=== PATIENT | female | born 1945 | race Caucasian/White ===

== ENCOUNTER 2016-12-18 09:00 | Inpatient (IN) | payer MEDICARE, BC ==
--- NOTE | ~2016-12-18 | OP ---
Record Of Operation [facility] [address] [place]. [address] NAME: CLARIBEL GARRETT : 43 STATUS : ADM IN PAT#: [id number] AGE: 71 ADM/REG DATE : 12/18/16 MR#: [id number] REPORT SERV DATE: 12/27/16 DICTATED BY: GIRISH LEIVA DATE: 12/27/16 REPORT STATUS : Draft TRANSCRIBED BY: MODL DATE: 12/27/16 DATE OF PROCEDURE: 12/24/2016 PREOPERATIVE DIAGNOSES: 1. Coronary artery disease with angina and rww-OK-fcoykxpkb myocardial infarction. 2. Congestive heart failure, systolic, acute on chronic. Ejection fraction 30%. 3. LV apical aneurysm. 4. Previous myocardial infarction. 5. Hypertension. 6. Degenerative joint disease. 7. Obesity. 8. Hyperlipidemia. POSTOPERATIVE DIAGNOSES: 1. Coronary artery disease with angina and pev-HZ-sxqvdmpql myocardial infarction. 2. Congestive heart failure, systolic, acute on chronic. Ejection fraction 30%. 3. LV apical aneurysm. 4. Previous myocardial infarction. 5. Hypertension. 6. Degenerative joint disease. 7. Obesity. 8. Hyperlipidemia. PROCEDURES PERFORMED: 1. Urgent coronary artery bypass grafting x6; left internal mammary artery placed to left anterior descending; reverse saphenous vein graft placed to the diagonal; reverse saphenous vein graft sequenced to the first obtuse marginal, second obtuse marginal, and third obtuse marginal; reverse saphenous vein graft placed to the posterior descending artery. 2. Left ventricular aneurysm repair using Lyndon method. 3. Endoscopic vein harvest, saphenous vein from right leg. 4. Transesophageal echocardiography. SURGEON: Girish Leiva M.D. PARAKEET RAISER: Cliff Joseph. ANESTHESIA: General with Dr. Vitale. CLEARANCE REPRESENTATIVE: Dr. Jarret Montoya and Dr. Efrain Slaughter. INDICATIONS: This is a 71-year-old obese female with a history of myocardial infarction in 1994. She presented to [facility] with chest pain and shortness of breath. She ruled in for ena-ES-elmilnzky myocardial infarction. She stabilized up there and transferred to [facility] for possible cardiac catheterization and disposition. She underwent cardiac catheterization here, which demonstrated significant three-vessel coronary artery Record Of Operation [facility] [address] [place]. [address] NAME: CLARIBEL GARRETT : 43 STATUS : ADM IN PAT#: [id number] AGE: 71 ADM/REG DATE : 12/18/16 MR#: [id number] REPORT SERV DATE: 12/27/16 DICTATED BY: GIRISH LEIVA DATE: 12/27/16 REPORT STATUS : Draft TRANSCRIBED BY: JENNIFER DATE: 12/27/16 disease with reduced ventricular function and an ejection fraction of 30%. We were asked to see the patient for possible urgent revascularization. We discussed this operation with the patient and her family and after a lengthy discussion of the operation, its indications, and risks, they wished to proceed. STS predicted risk of mortality for coronary artery bypass grafting was 3.4% morbidity, mortality was 21%, and this was shared with the family. FINDINGS AT OPERATION: 1. Cross-clamp time 97 minutes, total pump time 113 minutes. 2. The LAD was 1.5 mm and heavily diseased vessel. A 2-mm GONZALEZ was anastomosed to it with fair runoff. 3. The diagonal vessel was 1.5 mm and moderately diseased. A 3-mm RSVG was anastomosed to it with good runoff. 4. The first obtuse marginal was 1.5 mm and moderately diseased. A 4-mm RSVG was anastomosed to it in a xtmv-go-cewc fashion with fair runoff. 5. The second obtuse marginal was 1.5 mm and moderately diseased. The same 4-mm RSVG was anastomosed to this vessel in a aama-hd-zyvm fashion with fair runoff. 6. The third obtuse marginal was 1.5 mm and moderately diseased. The end of the same 4-mm RSVG was anastomosed to it with fair runoff. 7. The posterior descending artery was 1.5 mm and moderately diseased. A 4-mm RSVG was anastomosed to it with good runoff. 8. The vein quality was good and all grafts had good Doppler signal at the end of the case. 9. The LV apical aneurysm was x2 on cardiac catheterization. In the operating room with aortic root vent in place, this was a thinned out area of the apex of the left ventricle and based medially along the septum. The muscular tissue was very thinned and actually puckered with venting of the aortic root. We performed a Lyndon repair using a pursestring suture at the peripheral border zone and oversewing this with the aneurysm sac tissue. 10.DAVID at the end of the operation demonstrated improved ventricular function and very minimal mitral insufficiency. PATHOLOGIC SPECIMENS: None. DESCRIPTION OF PROCEDURE: The patient was brought to the operating suite where general anesthesia was induced. Airway was secured with an endotracheal tube. Lines were secured by Anesthesia. Hess catheter was placed. The patient's chest, abdomen, groin, and legs prepped with Hibiclens and ChloraPrep and draped with Ioban sterile sheets. DAVID probe was placed by Anesthesia and examination carried out in my attendance. Saphenous vein was harvested from the right leg using endoscopic technique. Briefly, the vein was cut directly down upon through a 2-cm incision placed at the medial aspect of the right knee. Then, using VasoView trocars, the vessel was dissected from the surrounding subcutaneous tissue and fat. The side branches were identified, ligated, and divided with cautery. Once adequate length of vein had been dissected, a counterincision was made up in the groin and in the lower leg where the vein was ligated, divided, and brought through the knee incision. The vein quality was good. The leg was made hemostatic and closed in layers with absorbable suture and skin closed in subcuticular fashion. Record Of Operation [facility] [address] [facility] [place]. [address] NAME: CLARIBEL GARRETT : 43 STATUS : ADM IN [facility]#: [id number] AGE: 71 ADM/REG DATE : 12/18/16 MR#: [id number] REPORT SERV DATE: 12/27/16 DICTATED BY: GIRISH LEIVA DATE: 12/27/16 REPORT STATUS : Draft TRANSCRIBED BY: JENNIFER DATE: 12/27/16 Then, a midline sternal incision was made and the sternum opened with a saw. The left hemithorax was elevated and the endothoracic fascia was incised. The side branches of the TRENT were clipped and divided. Once the TRENT was completely dissected, the patient was anticoagulated with heparin. A chest tube was placed in the left pleural cavity. The TRENT was clipped and divided distally. There was good flow through the TRENT and its pedicle was infiltrated with papaverine. Then, the Rogelio retractor was placed in the pericardium over from the innominate vein. The diaphragm was T'd and tacked to the side of the chest wall. Cannulation pursestring sutures were placed and cannulation was carried out in routine manner. A retrograde cardioplegia cannula was placed in the coronary sinus. When all was in readiness, the patient was placed on cardiopulmonary bypass. The distal targets were marked out on the heart as described in the findings. There were multiple targets seen on cath. There were small. Then, a heart support was placed. The aorta was crossclamped and an initial dose of cold blood cardioplegia solution was given in a combination of antegrade and retrograde fashion, then in retrograde manner following proximal anastomoses. Following the first dose of cardioplegia, we returned the heart toward the second obtuse marginal graft. Arteriotomy was made. The vein graft was trimmed proximally and planned for sequential grafting. Then, a lrqf-qn-ztcj saphenous coronary anastomosis was constructed with 7-0 Prolene. The third obtuse marginal vessel was opened and the end of the vein graft trimmed and anastomosed to it with a running suture of 7-0 Prolene. Finally, the first obtuse marginal vessel was opened and the vein graft lay adjacent to this and then a small venotomy made. Then, saphenous coronary anastomosis was constructed in a side-to- side fashion with running suture of 7-0 Prolene. This sequential graft was then measured to the left side of the ascending aorta, where it was divided and anastomosed to 4.5 mm punch aortotomy with 6-0 Prolene. Another dose of cardioplegia was given and the heart was positioned for the PDA graft. Arteriotomy was made. The vein graft was trimmed and anastomosed to it with 7-0 Prolene. The vein graft was measured to the left side of the ascending aorta, where it was divided. We then positioned the heart for the diagonal graft. Arteriotomy was made. The vein graft was trimmed and anastomosed to it with 7-0 Prolene. This vein graft was likewise measured to the left side of the ascending aorta, where it was divided. Next, the proximal ends of the two vein grafts were anastomosed to 4.5 mm punch aortotomy with 6-0 Prolene. Another dose of cardioplegia was given and the heart was positioned for the LAD graft. During this positioning, we did note the thinness of the apex and puckering and reviewed the heart catheterization. I felt this was most likely consistent with an aneurysm and plans were made for repair. Arteriotomy was made in the mid LAD. It was heavily diseased and small target. The TRENT was brought out of the left chest through a notch in the pericardium over the pulmonary artery. The TRENT was opened and anastomosed to the LAD with a running suture of 8-0 Prolene. The endothoracic fascia was tacked to the epicardium. , another dose of cardioplegia was given and we turned our attention toward the apex of the heart, where the LV aneurysm existed. A left ventricular vent was placed through the right superior pulmonary vein and advanced into Record Of Operation [address] [place]. [address] NAME: CLARIBEL GARRETT : 43 STATUS : ADM IN PAT#: [id number] AGE: 71 ADM/REG DATE : 12/18/16 MR#: [id number] REPORT SERV DATE: 12/27/16 DICTATED BY: GIRISH LEIVA DATE: 12/27/16 REPORT STATUS : Draft TRANSCRIBED BY: MODL DATE: 12/27/16 the left ventricle and secured. An incision parallel to the LAD and lateral to it and in the thinnest part of the aneurysm was made. This was carried into the endocardial surface. Retractor was placed and we inspected the endocardial surface and found what was thought to be the peripheral border zone. A 2-0 Prolene pursestring suture was then placed in the neck of this aneurysm at the peripheral border zone. The suture was tied and the gap within this pursestring suture was very small. We then to elected oversew this tissue directly over the closure for the aneurysm. This was performed in a two-layer running fashion with 3-0 Prolene using horizontal mattress sutures. The patient was then placed in Trendelenburg and a final dose of warm blood cardioplegia was given in a retrograde fashion. Ventricular and atrial pacing wires were placed. Following the last dose of cardioplegia and deairing of the aorta, the aortic cross-clamp was removed. The distal and proximal anastomoses and suture lines were inspected and made hemostatic. Doppler demonstrated good flow through the grafts. The heart was then begun on inotropes and pacing was begun in an AV sequential fashion at a rate of 80. Ventilation was begun and when the heart demonstrated good contractility, it was allowed to fill and eject. When deairing was completed, the LV vent was removed and these pursestring sutures were tied. The ascending aortic vent was removed and these pursestring sutures tied and reinforced. The patient was weaned from cardiopulmonary bypass with inotropic support. The venous cannula was removed and these pursestring sutures tied. DAVID examination demonstrated improved ventricular function. The aneurysm was no longer seen at the LV apex on echocardiography. There was very minimal mitral insufficiency. Protamine was administered by Anesthesia and following a period of hemodynamic stability, the aortic cannula was removed and these pursestring sutures tied and reinforced. The patient continued to do well and chest irrigated copiously with saline. Meticulous hemostasis was obtained. Hemasorb was placed along the cut edge of the sternum. Once hemostasis was assured, the pericardium was draped over the anterior surface of the heart and tacked into position. Doppler demonstrated good flow through the grafts following protamine administration. Then, chest tubes were placed and the sternum reapproximated with eight sternal wires. The clavipectoral fascia and linea alba were closed with #1 Stratafix. The subcutaneous tissues were closed with Stratafix and the skin was closed in subcuticular fashion. The patient tolerated the procedure well. There were no complications. Sponge and needle counts were correct. DISPOSITION: The patient was left intubated, sedated, and transported to the intensive care unit in stable condition. [facility] Record Of [address] [address] NAME: CLARIBEL GARRETT : 43 STATUS : ADM IN [facility]#: [id number] AGE: 71 ADM/REG DATE : 12/18/16 MR#: [id number] REPORT SERV DATE: 12/27/16 DICTATED BY: GIRISH LEIVA DATE: 12/27/16 REPORT STATUS : Draft TRANSCRIBED BY: MODL DATE: 12/27/16 Girish Leiva M.D. / [id number] CC: Felicia Prado M.D.
--- NOTE | ~2016-12-18 | CN ---
Consultation Report [facility] [address] [place]. [address] NAME: CLARIBEL GARRETT : 43 STATUS : ADM IN PAT#: [id number] AGE: 71 ADM/REG DATE : 12/18/16 MR#: [id number] REPORT SERV DATE: 12/19/16 DICTATED BY: KENYON ALVAREZ DATE: 12/19/16 REPORT STATUS : Draft TRANSCRIBED BY: MODL DATE: 12/19/16 CONSULTATION DATE OF CONSULTATION: 12/18/2016 REASON FOR CONSULTATION: Coronary artery disease, recent kse-CK-gqwiikauv myocardial infarction, consideration for coronary artery bypass grafting. CHIEF COMPLAINT: "I had terrible shortness of breath and chest pain and went to the ER". HISTORY OF PRESENT ILLNESS: This is a 71-year-old female, fairly active, who has prior cardiac history of myocardial infarction in 1994. She was treated conservatively at that time. She tells me that, she has been doing well until approximately Friday when she had sudden onset of shortness of breath and wheezing and crackles in her lungs. This was associated with chest discomfort, which was burning in nature. This lasted over an hour. She went to the emergency department at [facility] and was found to have findings on chest x- ray consistent with pulmonary edema as well as elevated troponin I and abnormal EKG. She was hospitalized, stabilized, and yesterday was transferred here and underwent coronary arteriogram, which demonstrated significant flow-limiting three-vessel coronary artery disease. Her left ventricular function was diminished with ejection fraction of 30%. We were asked to see for possible coronary artery bypass grafting. This was discussed with the patient and her son this morning. PRIOR MEDICAL HISTORY: 1. Hypertension. 2. Hyperlipidemia. 3. Asthma. 4. Arthritis. 5. Nephrolithiasis. 6. Urinary incontinence. PRIOR SURGICAL HISTORY: Significant for section and previous tubal ligation. ALLERGIES: SHE TELLS ME, SHE CANNOT TAKE NITROGLYCERIN, BUT DOES NOT KNOW WHAT SORT OF INTOLERANCE SHE HAS. SHE ALSO SEEMS INTOLERANT OF PENICILLIN AND SULFA, BUT HAS NO RECOLLECTION OF WHAT SORT OF ALLERGY SHE HAS. MEDICATIONS: At [facility] included albuterol inhaler, aspirin, atorvastatin, furosemide, lisinopril, metoprolol, nitroglycerin, pantoprazole, potassium, and ondansetron. FAMILY HISTORY: Significant for father age sixty one of sudden cardiac , mother had valvular disease and at age forty four three days after the patient was born. Consultation Report [address] [place]. [address] NAME: CLARIBEL GARRETT : 43 STATUS : ADM IN [facility]#: [id number] AGE: 71 ADM/REG DATE : 12/18/16 MR#: [id number] REPORT SERV DATE: 12/19/16 DICTATED BY: KENYON ALVAREZ DATE: 12/19/16 REPORT STATUS : Draft TRANSCRIBED BY: JENNIFER DATE: 12/19/16 SOCIAL HISTORY: She is a nonsmoker, nondrinker. She is . She has four adult children. 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 REVIEW OF SYSTEMS: GENERAL: Negative for any recent weight change, fevers, chills, night sweats, or malaise. ENT: Denies cataracts, glaucoma, any ear problems. She has upper and lower dentures. RESPIRATORY: Positive for asthma, recent dyspnea, and shortness of breath, wheezing and crackles in the lungs. CV: Positive for palpitations. Negative for heart murmur. Positive for prior heart attack and recent chest pain. GI: Negative. : Positive for kidney stones. HEME/ONC: Negative. ENDOCRINE: Negative. NEUROLOGIC: Negative for any symptoms of amaurosis fugax, TIA, or stroke. SKIN, HAIR, NAILS: Denies lesions, masses, rashes, or easy bruising. PHYSICAL EXAMINATION: GENERAL: She is a pleasant elderly white female, in no acute distress. Her weight 61.23 kg, height 157.48 cm. VITAL SIGNS: Blood pressure is 133/74, temperature 99.1, pulse 72, respirations 21, saturation 99% on 3 L nasal cannula. HEENT: Normocephalic, atraumatic. Her left pupil is slightly irregular, but reactive. Sclerae clear, conjunctivae pink. Oral and buccal mucosa pink and moist, and she is edentulous. NECK: Supple. No restricted range of motion. No carotid bruits. No jugular venous distention. CHEST: She has bibasilar crackles and coarse breath sounds. No use of accessory muscles. Mild thoracic kyphosis. No scoliosis. No other deformity. No chest wall tenderness. CV: Regular rate and rhythm without murmur or rub. She has palpable symmetric central peripheral pulses, no clubbing, cyanosis, or edema. No lower extremity varicosities. ABDOMEN: Soft, obese, nontender with normoactive bowel sounds. No hepatosplenomegaly. /RECTAL: Declined. MUSCULOSKELETAL: Mild kyphosis. No scoliosis. No asymmetry. NEUROLOGIC: She is alert and oriented to day, date, place, and situation. Has bilateral symmetric and strong upper and lower extremity strength. SKIN, HAIR, AND NAILS: No lesions, masses, or rashes. DATA: Her coronary arteriogram shows flow-limiting disease in the left anterior descending, diagonals, obtuse marginal, circumflex, and right coronary arteries. Her left ventricular function is severely diminished with anterior apical and posterior apical and apical akinesis. Her EKG shows sinus rhythm with left bundle branch block. Her troponin I was 1.44, BNP was [address] [facility]. Her CBC shows WBC is 8.9, hemoglobin 14.2, hematocrit 41.6, and platelets 205,000. Electrolytes are unremarkable, creatinine is 0.75. Her cholesterol is elevated at 216, HDL was 65, LDL 130, and triglycerides 106. Consultation Report [address] [place]. [address] NAME: CLARIBEL GARRETT : 43 STATUS : ADM IN [facility]#: [id number] AGE: 71 ADM/REG DATE : 12/18/16 MR#: [id number] REPORT SERV DATE: 12/19/16 DICTATED BY: KENYON ALVAREZ DATE: 12/19/16 REPORT STATUS : Draft TRANSCRIBED BY: JENNIFER DATE: 12/19/16 IMPRESSION: Three-vessel flow-limiting coronary artery disease in a 71-year-old female with recent pdf-MZ-ivayhymse myocardial infarction and pulmonary edema with thnnr-ud-oqopxpv systolic heart failure. PLAN: Discussed with the patient possible coronary artery bypass grafting, indications, benefits, and serious risks which include but are not limited to, things such as bleeding, need for blood or blood product transfusion and their attendant risks, infection including deep sternal infection, mediastinitis, damage to the kidneys, liver, lungs, heart attack, stroke, abnormal heart rhythm, and even . The patient is agreeable to proceed. We will discuss with Dr. Leiva and cardiology timing of surgery. Carotid ultrasound is currently pending. We will obtain chest x-ray today. Using Society of Thor[employer]geons database for risk prediction, risk of mortality was 3.378%, morbidity or mortality 21.037%. This is discussed with the patient and her family. We appreciate the opportunity to participate in her care and will make further disposition, probably surgical revascularization at this hospitalization. JOHN/JENNIFER Kenyon Alvarez, N.P. / [id number] CC: Felicia Prado MD
--- NOTE | ~2016-12-18 | DS ---
Discharge Summary [facility] [address] [place]. [address] NAME: CLARIBEL GARRETT : 43 STATUS : DIS IN PAT#: [id number] AGE: 71 ADM/REG DATE : 12/18/16 MR#: [id number] REPORT SERV DATE: 01/13/17 DICTATED BY: GIRISH LEIVA DATE: 01/12/17 REPORT STATUS : Draft TRANSCRIBED BY: JENNIFER DATE: 01/12/17 Data Collection from hospitalization DISCHARGE DIAGNOSES: 1. Coronary artery disease, status post coronary artery bypass grafting. 2. Chronic systolic congestive heart failure. 3. Hypertension. 4. Hyperlipidemia. 5. Recent skw-[place]-kktndfyjx myocardial infarction. 6. Asthma. 7. Arthritis. 8. History of nephrolithiasis. 9. Urinary incontinence. CONSULTATION: Dr. Jarret Montoya. PROCEDURES PERFORMED: 1. Cardiac catheterization, 12/18/2016. 2. Urgent coronary artery bypass grafting x6 with GONZALEZ to the LAD, reverse saphenous vein graft placed to the diagonal, reverse saphenous vein graft sequenced to the first obtuse marginal, second obtuse marginal, and third obtuse marginal, reverse saphenous vein graft placed to the posterior descending artery. 3. Left ventricular aneurysm repair using Lyndon method. 4. Endoscopic vein harvest of the saphenous vein from the right leg. 5. Transesophageal echocardiography, 12/24/2016. 6. Carotid blood flow study, 12/19/2016. DISCHARGE MEDICATIONS: Proventil one nebulized inhaler every six hours as instructed, aspirin 81 mg daily, Lipitor 40 mg at bedtime, Coreg 12.5 mg twice a day, Lasix 40 mg daily as needed, Laporte 5/325 one tablet every four hours as needed, Prinivil 5 mg daily, nitroglycerin 0.4 mg sublingually as needed, Zofran 4 mg every four hours as needed, Protonix 40 mg daily, Klor-Con 20 mEq daily as needed, Senokot two tablets daily as needed, Aldactone 25 mg daily, Jantoven 5 mg every evening. CONDITION AT DISCHARGE: Stable. DISPOSITION: The patient was discharged home on a low-sodium, low-cholesterol diet with activities as instructed. She would follow up with Kenyon Milian on 02/27/2017. She would follow up with Dr. Efrain Slaughter on 02/14/2017. She would [facility] [place] on 01/02/2017. HOSPITAL COURSE: This is a 71-year-old female who is fairly active and has a prior cardiac history of myocardial infarction in 1994. She was treated conservatively at that time. She tells me that she had been doing well until approximately Friday prior to this admission when she had the sudden onset of shortness of breath, wheezing, and crackles in her lungs. This was associated with chest discomfort which was burning in nature, this lasted over an hour. She went to the emergency department at [facility] and was found to have findings on chest x-ray consistent with pulmonary edema as well as elevated troponin I and abnormal EKG. Discharge Summary [address] [address] NAME: CLARIBEL GARRETT : 43 STATUS : DIS IN [facility]#: [id number] AGE: 71 ADM/REG DATE : 12/18/16 MR#: [id number] REPORT SERV DATE: 01/13/17 DICTATED BY: GIRISH LEIVA DATE: 01/12/17 REPORT STATUS : Draft TRANSCRIBED BY: JENNIFER DATE: 01/12/17 She was hospitalized and stabilized and on the day of this admission, was transferred here to undergo coronary arteriogram. She was admitted to the hospital at this time for further evaluation and treatment. Upon admission, she was taken to the cardiac laborer/grade check where she underwent the above- mentioned coronary arteriogram by Dr. Jarret Montoya. She tolerated this well. There were no complications. Her coronary arteriogram demonstrated significant flow-limiting three-vessel coronary artery disease. Her left ventricular function was diminished with ejection fraction of 30%. It was thought that the patient would need to undergo possible coronary artery bypass grafting. The patient was agreeable to proceed. A carotid blood flow study was requested. The following day, a carotid blood flow study was performed. Coreg was increased. She was in a sinus rhythm. On 12/20/2016, she did complain of having some diarrhea. She was in a sinus rhythm. Stool was going to be checked for O and P and C. difficile. Blood pressure was under good control. She was well diuresed. C difficile study was negative. study was negative. She remained in a sinus rhythm. Plans were being made to proceed with surgical intervention. On 12/24/2016, she was taken to the operating room where she underwent the above-mentioned procedure. She tolerated this well. There were no complications. On postop day #1, her lungs were clear. She had no edema. Her incisions looked okay. Beta-geovany was held. Oral fluids were increased. Blood pressure was under good control at this time. On 12/26/2016, she had no new complaints. Her weight had increased. She did have some edema in her lower extremities. White count was 16.6. Aldactone was continued. Her incisions looked okay. Chest x-ray revealed some left base atelectasis and effusion. Her family was concerned about her weakness and unsteady gait. We encouraged her to increase her activity. Eliquis was added to her regimen to prevent against clot. On 12/29/2016, she was comfortable. She was ambulatory. She was in a regular sinus rhythm. Eliquis was continued. The next day, the patient fell after slipping on some water on the floor in the bathroom. She was now using a rolling walker. She had no issues with balance or gait. She had made significant progress in her strength since the previous week. Discharge planning continued. There were no acute physical therapy needs at this time. Echocardiogram was performed. She continued to ambulate in the halls without problems. A LifeVest was going to be placed. Laxatives were given. She had no evidence of bleeding. She remained in a sinus rhythm. On 12/31/2016, she continued to feel well. White count was 9.9. Blood pressure was under good control. She seemed to be in good spirits. Discharge instructions were given. Due to her improved and stable condition, she was discharged home with the above-stated instructions. Information collected by: Andie Painting I submit the above information as my discharge summary. DAVONTE/JENNIFER Girish Leiva M.D. / [id number] Discharge Summary [address] [address] NAME: CLARIBEL GARRETT : 43 STATUS : DIS IN PAT#: [id number] AGE: 71 ADM/REG DATE : 12/18/16 MR#: [id number] REPORT SERV DATE: 01/13/17 DICTATED BY: GIRISH LEIVA DATE: 01/12/17 REPORT STATUS : Draft TRANSCRIBED BY: JENNIFER DATE: 01/12/17 CC: Felicia Prado MD
[2016-12-18 10:08] LABS: BASOPHILS 0.3 %; BASOPHILS ABSOLUTE 0.03 10/3/uL (0.0-0.16); EOSINOPHILS 1.1 %; EOSINOPHILS ABSOLUTE 0.11 10/3/uL (0.0-0.53); HEMATOCRIT 40.6 % (36.0-48.0); IMMATURE GRANULOCYTES 0.3 %; IMMATURE GRANULOCYTES ABSOLUTE 0.03 10/3/uL (0.0-0.11); LYMPHOCYTES 27.2 %; MEAN CORPUS HGB CONC 34.5 g/dL (32.0-36.0); MEAN CORPUSCULAR HEMOGLOB 31.7 pg (26.0-34.0); MEAN CORPUSCULAR VOLUME 91.9 fL (80-100); MEAN PLATELET VOLUME 11.4 fL (9.2-13.0); MONOCYTES 8.3 %; MONOCYTES ABSOLUTE 0.82 10/3/uL (0.21-1.20); NEUTROPHILS 62.8 %; NEUTROPHILS ABSOLUTE 6.22 10/3/uL (2.02-8.40); PLATELET COUNT 221 10/3/uL (150-400); RBC DISTRIBUTION WIDTH 13.7 % (12.0-16.0); RED CELL COUNT 4.42 10/6/uL (4.0-5.6); WHITE BLOOD CELLS 9.9 10/3/uL (4.5-10.5)
[2016-12-18 10:09] LABS: MANUAL DIFF NO %
[2016-12-18 10:23] LABS: BUN (BLOOD UREA NITROGEN) 20 MG/DL (6-23); CALCIUM, SERUM 8.7 MG/DL (8.5-10.4); CHLORIDE, SERUM 106 MMOL/L (96-112); CHOL/HDL RATIO(NOT ORDER) 3.3 (0-5); CHOLESTEROL 216 MG/DL (< 200); CO2 (CARBON DIOXIDE) 28 MMOL/L (24-34); CREATININE 0.95 MG/DL (0.55-1.02); GFR AFRICAN AMERICAN 69 ML/MIN (>=60); GFR NON AFRICAN AMERICAN 60 ML/MIN (>=60); GLUCOSE, SERUM 93 MG/DL (60-99); HDL CHOLESTEROL 65 MG/DL (> 49); LDL CHOLESTEROL 130 MG/DL (< 130); NON-HDL CHOLESTEROL 151 MG/DL (< 160); POTASSIUM, SERUM 3.9 MMOL/L (3.5-5.3); SODIUM, SERUM 143 MMOL/L (135-148); TRIGLYCERIDE 106 MG/DL (< 150)
[2016-12-18] MEDS ORDERED: [UNRECOGNIZED DRUG - REMARK] (11:11)
[2016-12-18] MEDS ORDERED: ALBUTEROL5 INH (17:28)
[2016-12-18] MEDS ORDERED: ASABAYER PO (17:28)
[2016-12-18] MEDS ORDERED: LIPITOR40 PO (17:29)
[2016-12-18] MEDS ORDERED: ALTA5 PO (17:30)
[2016-12-18] MEDS ORDERED: [UNRECOGNIZED DRUG - OTHER] PO (17:30)
[2016-12-18] MEDS ORDERED: LOP25 PO (17:31)
[2016-12-18] MEDS ORDERED: NTG150 SL (17:31)
[2016-12-18] MEDS ORDERED: PROTONIX PO (17:32)
[2016-12-18] MEDS ORDERED: KLOR-CON M2020 MEQ PO (17:35)
[2016-12-18] MEDS ORDERED: ZOFRAN4 PO (17:38)
[2016-12-18 21:07] LABS: ASCORBIC ACID (UR NOT ORDER) NEG (NEG); BILIRUBIN, URINE NEGATIVE (NEG); KETONE, URINE NEGATIVE (NEG); LEUKOCYTE ESTERASE(NOT OR SMALL (NEG); WBC (NOT ORDERED) (RFLEX) 4 (0-5)
[2016-12-19 04:43] LABS: BASOPHILS 0.2 %; BASOPHILS ABSOLUTE 0.02 10/3/uL (0.0-0.16); EOSINOPHILS 1.3 %; EOSINOPHILS ABSOLUTE 0.12 10/3/uL (0.0-0.53); HEMATOCRIT 41.6 % (36.0-48.0); HEMOGLOBIN 14.2 g/dL (12.0-16.0); IMMATURE GRANULOCYTES 0.1 %; IMMATURE GRANULOCYTES ABSOLUTE 0.01 10/3/uL (0.0-0.11); LYMPHOCYTES 19.7 %; LYMPHOCYTES ABSOLUTE 1.76 10/3/uL (0.67-4.30); MANUAL DIFF NO %; MEAN CORPUS HGB CONC 34.1 g/dL (32.0-36.0); MEAN CORPUSCULAR HEMOGLOB 31.9 pg (26.0-34.0); MEAN CORPUSCULAR VOLUME 93.5 fL (80-100); MEAN PLATELET VOLUME 10.9 fL (9.2-13.0); MONOCYTES 9.6 %; MONOCYTES ABSOLUTE 0.86 10/3/uL (0.21-1.20); NEUTROPHILS 69.1 %; NEUTROPHILS ABSOLUTE 6.15 10/3/uL (2.02-8.40); PLATELET COUNT 205 10/3/uL (150-400); RBC DISTRIBUTION WIDTH 13.5 % (12.0-16.0); RED CELL COUNT 4.45 10/6/uL (4.0-5.6); WHITE BLOOD CELLS 8.9 10/3/uL (4.5-10.5)
[2016-12-19 04:56] LABS: BUN (BLOOD UREA NITROGEN) 17 MG/DL (6-23); CALCIUM, SERUM 8.7 MG/DL (8.5-10.4); CHLORIDE, SERUM 108 MMOL/L (96-112); CO2 (CARBON DIOXIDE) 25 MMOL/L (24-34); CREATININE 0.75 MG/DL (0.55-1.02); GFR AFRICAN AMERICAN 92 ML/MIN (>=60); GFR NON AFRICAN AMERICAN 80 ML/MIN (>=60); GLUCOSE, SERUM 95 MG/DL (60-99); POTASSIUM, SERUM 4.3 MMOL/L (3.5-5.3); SODIUM, SERUM 141 MMOL/L (135-148)
[2016-12-20 13:49] LABS: BASOPHILS 0.2 %; BASOPHILS ABSOLUTE 0.02 10/3/uL (0.0-0.16); EOSINOPHILS 1.4 %; EOSINOPHILS ABSOLUTE 0.13 10/3/uL (0.0-0.53); HEMOGLOBIN 14.8 g/dL (12.0-16.0); IMMATURE GRANULOCYTES 0.1 %; IMMATURE GRANULOCYTES ABSOLUTE 0.01 10/3/uL (0.0-0.11); LYMPHOCYTES 19.6 %; LYMPHOCYTES ABSOLUTE 1.81 10/3/uL (0.67-4.30); MEAN CORPUS HGB CONC 34.4 g/dL (32.0-36.0); MEAN CORPUSCULAR HEMOGLOB 32.2 pg (26.0-34.0); MEAN CORPUSCULAR VOLUME 93.5 fL (80-100); MEAN PLATELET VOLUME 11.5 fL (9.2-13.0); MONOCYTES 9.5 %; MONOCYTES ABSOLUTE 0.88 10/3/uL (0.21-1.20); NEUTROPHILS 69.2 %; NEUTROPHILS ABSOLUTE 6.39 10/3/uL (2.02-8.40); PLATELET COUNT 201 10/3/uL (150-400); RBC DISTRIBUTION WIDTH 13.6 % (12.0-16.0); WHITE BLOOD CELLS 9.2 10/3/uL (4.5-10.5)
[2016-12-20 13:50] LABS: MANUAL DIFF NO %
[2016-12-20 14:04] LABS: CALCIUM, SERUM 9.6 MG/DL (8.5-10.4); CHLORIDE, SERUM 109 MMOL/L (96-112); CO2 (CARBON DIOXIDE) 26 MMOL/L (24-34); GFR AFRICAN AMERICAN 50 ML/MIN (>=60); GFR NON AFRICAN AMERICAN 43 ML/MIN (>=60); GLUCOSE, SERUM 83 MG/DL (60-99); SODIUM, SERUM 142 MMOL/L (135-148)
[2016-12-20 14:05] LABS: BUN (BLOOD UREA NITROGEN) 25 MG/DL (6-23); CREATININE 1.25 MG/DL (0.55-1.02)
[2016-12-21 13:07] LABS: BUN (BLOOD UREA NITROGEN) 32 MG/DL (6-23); CALCIUM, SERUM 9.1 MG/DL (8.5-10.4); CHLORIDE, SERUM 106 MMOL/L (96-112); CO2 (CARBON DIOXIDE) 27 MMOL/L (24-34); CREATININE 1.35 MG/DL (0.55-1.02); GFR AFRICAN AMERICAN 45 ML/MIN (>=60); GFR NON AFRICAN AMERICAN 39 ML/MIN (>=60); GLUCOSE, SERUM 96 MG/DL (60-99); POTASSIUM, SERUM 3.9 MMOL/L (3.5-5.3); SODIUM, SERUM 141 MMOL/L (135-148)
[2016-12-22 13:27] LABS: CALCIUM, SERUM 9.5 MG/DL (8.5-10.4); CHLORIDE, SERUM 107 MMOL/L (96-112); CO2 (CARBON DIOXIDE) 25 MMOL/L (24-34); CREATININE 1.05 MG/DL (0.55-1.02); GFR AFRICAN AMERICAN 61 ML/MIN (>=60); GFR NON AFRICAN AMERICAN 53 ML/MIN (>=60); GLUCOSE, SERUM 89 MG/DL (60-99); POTASSIUM, SERUM 4.1 MMOL/L (3.5-5.3); SODIUM, SERUM 140 MMOL/L (135-148)
[2016-12-22 13:28] LABS: BUN (BLOOD UREA NITROGEN) 28 MG/DL (6-23)
[2016-12-23 06:14] LABS: BASOPHILS 0.3 %; BASOPHILS ABSOLUTE 0.02 10/3/uL (0.0-0.16); EOSINOPHILS 3.7 %; EOSINOPHILS ABSOLUTE 0.24 10/3/uL (0.0-0.53); HEMATOCRIT 39.3 % (36.0-48.0); HEMOGLOBIN 13.4 g/dL (12.0-16.0); IMMATURE GRANULOCYTES 0.2 %; IMMATURE GRANULOCYTES ABSOLUTE 0.01 10/3/uL (0.0-0.11); LYMPHOCYTES 27.5 %; LYMPHOCYTES ABSOLUTE 1.78 10/3/uL (0.67-4.30); MEAN CORPUS HGB CONC 34.1 g/dL (32.0-36.0); MEAN CORPUSCULAR HEMOGLOB 31.4 pg (26.0-34.0); MEAN PLATELET VOLUME 11.2 fL (9.2-13.0); MONOCYTES 11.4 %; MONOCYTES ABSOLUTE 0.74 10/3/uL (0.21-1.20); NEUTROPHILS 56.9 %; NEUTROPHILS ABSOLUTE 3.68 10/3/uL (2.02-8.40); PLATELET COUNT 213 10/3/uL (150-400); RBC DISTRIBUTION WIDTH 13.4 % (12.0-16.0); RED CELL COUNT 4.27 10/6/uL (4.0-5.6); WHITE BLOOD CELLS 6.5 10/3/uL (4.5-10.5)
[2016-12-23 06:15] LABS: MANUAL DIFF NO %
[2016-12-23 06:36] LABS: A/G RATIO 0.7 (0.7-1.9); ALKALINE PHOSPHATASE 72 U/L (45-117); BUN (BLOOD UREA NITROGEN) 26 MG/DL (6-23); CHLORIDE, SERUM 109 MMOL/L (96-112); CO2 (CARBON DIOXIDE) 25 MMOL/L (24-34); CREATININE 0.84 MG/DL (0.55-1.02); GFR AFRICAN AMERICAN 80 ML/MIN (>=60); GFR NON AFRICAN AMERICAN 69 ML/MIN (>=60); GLOBULIN 4.2 G/DL (2.5-4.1); GLUCOSE, SERUM 95 MG/DL (60-99); POTASSIUM, SERUM 4.1 MMOL/L (3.5-5.3); SGOT(AST) 12 U/L (5-40); SGPT(ALT) 19 U/L (5-65); SODIUM, SERUM 143 MMOL/L (135-148); TOTAL BILIRUBIN 0.5 MG/DL (0-1.2); TOTAL PROTEIN 7.2 G/DL (6.0-8.5)
[2016-12-23 14:10] LABS: ASCORBIC ACID (UR NOT ORDER) 40 (NEG); BILIRUBIN, URINE NEGATIVE (NEG); KETONE, URINE NEGATIVE (NEG); LEUKOCYTE ESTERASE(NOT OR MOD (NEG); WBC (NOT ORDERED) (RFLEX) 13 (0-5)
[2016-12-24 04:56] LABS: BASOPHILS 0.4 %; BASOPHILS ABSOLUTE 0.03 10/3/uL (0.0-0.16); EOSINOPHILS 3.6 %; EOSINOPHILS ABSOLUTE 0.25 10/3/uL (0.0-0.53); HEMATOCRIT 39.8 % (36.0-48.0); HEMOGLOBIN 13.5 g/dL (12.0-16.0); IMMATURE GRANULOCYTES 0.1 %; IMMATURE GRANULOCYTES ABSOLUTE 0.01 10/3/uL (0.0-0.11); LYMPHOCYTES 28.5 %; LYMPHOCYTES ABSOLUTE 1.97 10/3/uL (0.67-4.30); MEAN CORPUS HGB CONC 33.9 g/dL (32.0-36.0); MEAN CORPUSCULAR HEMOGLOB 31.5 pg (26.0-34.0); MEAN PLATELET VOLUME 11.2 fL (9.2-13.0); MONOCYTES ABSOLUTE 0.83 10/3/uL (0.21-1.20); NEUTROPHILS 55.4 %; NEUTROPHILS ABSOLUTE 3.82 10/3/uL (2.02-8.40); PLATELET COUNT 212 10/3/uL (150-400); RBC DISTRIBUTION WIDTH 13.3 % (12.0-16.0); RED CELL COUNT 4.28 10/6/uL (4.0-5.6); WHITE BLOOD CELLS 6.9 10/3/uL (4.5-10.5)
[2016-12-24 04:57] LABS: MANUAL DIFF NO %
[2016-12-24 05:03] LABS: INTERNATIONAL NORMAL RATI 1.2 UNITS (-); PROTIME (NOT ORD) 15.5 SEC (12.0-14.5)
[2016-12-24 05:11] LABS: A/G RATIO 0.7 (0.7-1.9); ALKALINE PHOSPHATASE 73 U/L (45-117); BUN (BLOOD UREA NITROGEN) 26 MG/DL (6-23); CALCIUM, SERUM 9.1 MG/DL (8.5-10.4); CHLORIDE, SERUM 106 MMOL/L (96-112); CO2 (CARBON DIOXIDE) 26 MMOL/L (24-34); CREATININE 1.02 MG/DL (0.55-1.02); GFR AFRICAN AMERICAN 64 ML/MIN (>=60); GFR NON AFRICAN AMERICAN 55 ML/MIN (>=60); GLOBULIN 4.1 G/DL (2.5-4.1); GLUCOSE, SERUM 97 MG/DL (60-99); POTASSIUM, SERUM 4.3 MMOL/L (3.5-5.3); SGOT(AST) 12 U/L (5-40); SGPT(ALT) 19 U/L (5-65); SODIUM, SERUM 142 MMOL/L (135-148); TOTAL BILIRUBIN 0.5 MG/DL (0-1.2); TOTAL PROTEIN 7.1 G/DL (6.0-8.5)
[2016-12-24 17:54] LABS: BE (BASE EXCESS) -6.8 MEQ/L (0 +/- 2.5); CARBOXYHEMOGLOBIN 0.3 % (0-3); HCO3 (ACTUAL BICARBONATE) 17.3 MEQ/L (23-27); HEMOBLOGIN CONTENT 12.2 G/DL (12-16); INSTRUMENT SERIAL # 11843; METHEMOGLOBIN 0.6 % (0-3); MODE SIMV; O2 CONTENT 17.2 VOL% (18-24); OPERATOR ID 13624; PCO2 (CO2 TENSION) 31 MMHG (35-45); PO2 (O2 TENSION) 195 MMHG (79-93); SAMPLE Arterial; TIDAL VOLUME 600 ML; pH 7.37 (7.37-7.43)
[2016-12-24 18:11] LABS: HEMOGLOBIN 11.4 g/dL (12.0-16.0)
[2016-12-24 18:15] LABS: HEMATOCRIT 33.8 % (36.0-48.0); PLATELET COUNT 129 10/3/uL (150-400)
[2016-12-24 18:20] LABS: INTERNATIONAL NORMAL RATI 1.7 UNITS (-); PARTIAL THROMBO TIME 34.4 SEC (22.5-37.2); PROTIME (NOT ORD) 20.2 SEC (12.0-14.5)
[2016-12-24 18:24] LABS: BUN (BLOOD UREA NITROGEN) 23 MG/DL (6-23); CALCIUM, SERUM 8.7 MG/DL (8.5-10.4); CHLORIDE, SERUM 113 MMOL/L (96-112); CO2 (CARBON DIOXIDE) 22 MMOL/L (24-34); CREATININE 1.04 MG/DL (0.55-1.02); GFR AFRICAN AMERICAN 62 ML/MIN (>=60); GFR NON AFRICAN AMERICAN 54 ML/MIN (>=60); GLUCOSE, SERUM 91 MG/DL (60-99); SODIUM, SERUM 145 MMOL/L (135-148)
[2016-12-25 00:30] LABS: HEMATOCRIT 32.3 % (36.0-48.0)
[2016-12-25 00:41] LABS: BUN (BLOOD UREA NITROGEN) 25 MG/DL (6-23); CALCIUM, SERUM 8.5 MG/DL (8.5-10.4); CHLORIDE, SERUM 116 MMOL/L (96-112); CO2 (CARBON DIOXIDE) 21 MMOL/L (24-34); CREATININE 1.12 MG/DL (0.55-1.02); GFR AFRICAN AMERICAN 57 ML/MIN (>=60); GFR NON AFRICAN AMERICAN 49 ML/MIN (>=60); GLUCOSE, SERUM 91 MG/DL (60-99); POTASSIUM, SERUM 3.7 MMOL/L (3.5-5.3); SODIUM, SERUM 149 MMOL/L (135-148)
[2016-12-25 03:21] LABS: CARBOXYHEMOGLOBIN 0.3 % (0-3); DEVICE NC; HCO3 (ACTUAL BICARBONATE) 19.2 MEQ/L (23-27); HEMOBLOGIN CONTENT 11.7 G/DL (12-16); INSTRUMENT SERIAL # 11843; METHEMOGLOBIN 0.6 % (0-3); O2 CONTENT 15.2 VOL% (18-24); OPERATOR ID 16469; PCO2 (CO2 TENSION) 33 MMHG (35-45); PO2 (O2 TENSION) 71 MMHG (79-93); SAMPLE Arterial; pH 7.39 (7.37-7.43)
[2016-12-25 03:26] LABS: BASOPHILS 0 %; EOSINOPHILS 0 %; HEMATOCRIT 32.1 % (36.0-48.0); HEMOGLOBIN 10.7 g/dL (12.0-16.0); IMMATURE GRANULOCYTES 0.3 %; IMMATURE GRANULOCYTES ABSOLUTE 0.03 10/3/uL (0.0-0.11); LYMPHOCYTES ABSOLUTE 0.57 10/3/uL (0.67-4.30); MEAN CORPUS HGB CONC 33.3 g/dL (32.0-36.0); MEAN CORPUSCULAR HEMOGLOB 31.3 pg (26.0-34.0); MEAN CORPUSCULAR VOLUME 93.9 fL (80-100); MEAN PLATELET VOLUME 11.2 fL (9.2-13.0); MONOCYTES ABSOLUTE 0.34 10/3/uL (0.21-1.20); NEUTROPHILS 91.7 %; NEUTROPHILS ABSOLUTE 10.48 10/3/uL (2.02-8.40); PLATELET COUNT 122 10/3/uL (150-400); RBC DISTRIBUTION WIDTH 13.3 % (12.0-16.0)
[2016-12-25 03:28] LABS: MANUAL DIFF NO %; RED CELL COUNT 3.42 10/6/uL (4.0-5.6); WHITE BLOOD CELLS 11.4 10/3/uL (4.5-10.5)
[2016-12-25 03:33] LABS: INTERNATIONAL NORMAL RATI 1.5 UNITS (-); PROTIME (NOT ORD) 18.1 SEC (12.0-14.5)
[2016-12-25 03:37] LABS: BUN (BLOOD UREA NITROGEN) 25 MG/DL (6-23); CALCIUM, SERUM 8.2 MG/DL (8.5-10.4); CHLORIDE, SERUM 119 MMOL/L (96-112); CO2 (CARBON DIOXIDE) 21 MMOL/L (24-34); CREATININE 0.99 MG/DL (0.55-1.02); GFR AFRICAN AMERICAN 66 ML/MIN (>=60); GFR NON AFRICAN AMERICAN 57 ML/MIN (>=60); GLUCOSE, SERUM 106 MG/DL (60-99); POTASSIUM, SERUM 4.4 MMOL/L (3.5-5.3); SODIUM, SERUM 150 MMOL/L (135-148)
[2016-12-25 16:49] LABS: HEMATOCRIT 29.1 % (36.0-48.0); HEMOGLOBIN 9.8 g/dL (12.0-16.0)
[2016-12-26 03:51] LABS: BASOPHILS 0.1 %; BASOPHILS ABSOLUTE 0.01 10/3/uL (0.0-0.16); EOSINOPHILS 0 %; HEMATOCRIT 30.9 % (36.0-48.0); HEMOGLOBIN 10.1 g/dL (12.0-16.0); IMMATURE GRANULOCYTES 0.3 %; IMMATURE GRANULOCYTES ABSOLUTE 0.05 10/3/uL (0.0-0.11); LYMPHOCYTES 5.6 %; LYMPHOCYTES ABSOLUTE 0.92 10/3/uL (0.67-4.30); MANUAL DIFF NO %; MEAN CORPUS HGB CONC 32.7 g/dL (32.0-36.0); MEAN CORPUSCULAR HEMOGLOB 31.4 pg (26.0-34.0); MEAN PLATELET VOLUME 11.8 fL (9.2-13.0); MONOCYTES ABSOLUTE 1.16 10/3/uL (0.21-1.20); NEUTROPHILS ABSOLUTE 14.41 10/3/uL (2.02-8.40); PLATELET COUNT 145 10/3/uL (150-400); RBC DISTRIBUTION WIDTH 14.1 % (12.0-16.0); RED CELL COUNT 3.22 10/6/uL (4.0-5.6); WHITE BLOOD CELLS 16.6 10/3/uL (4.5-10.5)
[2016-12-26 04:12] LABS: CALCIUM, SERUM 8.4 MG/DL (8.5-10.4); CHLORIDE, SERUM 114 MMOL/L (96-112); CO2 (CARBON DIOXIDE) 20 MMOL/L (24-34); CREATININE 1.03 MG/DL (0.55-1.02); GFR AFRICAN AMERICAN 63 ML/MIN (>=60); GFR NON AFRICAN AMERICAN 54 ML/MIN (>=60); SODIUM, SERUM 145 MMOL/L (135-148)
[2016-12-26 04:15] LABS: BUN (BLOOD UREA NITROGEN) 33 MG/DL (6-23); GLUCOSE, SERUM 133 MG/DL (60-99)
[2016-12-27 06:15] LABS: BASOPHILS 0.1 %; BASOPHILS ABSOLUTE 0.01 10/3/uL (0.0-0.16); EOSINOPHILS 0.3 %; EOSINOPHILS ABSOLUTE 0.04 10/3/uL (0.0-0.53); HEMATOCRIT 31.6 % (36.0-48.0); HEMOGLOBIN 10.3 g/dL (12.0-16.0); IMMATURE GRANULOCYTES 0.3 %; IMMATURE GRANULOCYTES ABSOLUTE 0.04 10/3/uL (0.0-0.11); LYMPHOCYTES 12.5 %; LYMPHOCYTES ABSOLUTE 1.49 10/3/uL (0.67-4.30); MEAN CORPUS HGB CONC 32.6 g/dL (32.0-36.0); MEAN CORPUSCULAR HEMOGLOB 31.5 pg (26.0-34.0); MEAN CORPUSCULAR VOLUME 96.6 fL (80-100); MEAN PLATELET VOLUME 11.5 fL (9.2-13.0); MONOCYTES 9.6 %; MONOCYTES ABSOLUTE 1.14 10/3/uL (0.21-1.20); NEUTROPHILS 77.2 %; NEUTROPHILS ABSOLUTE 9.19 10/3/uL (2.02-8.40); PLATELET COUNT 130 10/3/uL (150-400); RBC DISTRIBUTION WIDTH 13.7 % (12.0-16.0); RED CELL COUNT 3.27 10/6/uL (4.0-5.6); WHITE BLOOD CELLS 11.9 10/3/uL (4.5-10.5)
[2016-12-27 06:16] LABS: MANUAL DIFF NO %
[2016-12-27 06:28] LABS: CALCIUM, SERUM 8.2 MG/DL (8.5-10.4); CHLORIDE, SERUM 109 MMOL/L (96-112); GFR AFRICAN AMERICAN 65 ML/MIN (>=60); GFR NON AFRICAN AMERICAN 56 ML/MIN (>=60); GLUCOSE, SERUM 124 MG/DL (60-99); POTASSIUM, SERUM 4.1 MMOL/L (3.5-5.3); SODIUM, SERUM 142 MMOL/L (135-148)
[2016-12-27 06:31] LABS: BUN (BLOOD UREA NITROGEN) 37 MG/DL (6-23); CO2 (CARBON DIOXIDE) 26 MMOL/L (24-34)
[2016-12-28 05:43] LABS: BASOPHILS 0.1 %; BASOPHILS ABSOLUTE 0.01 10/3/uL (0.0-0.16); EOSINOPHILS 1.5 %; EOSINOPHILS ABSOLUTE 0.15 10/3/uL (0.0-0.53); HEMATOCRIT 29.5 % (36.0-48.0); IMMATURE GRANULOCYTES 0.2 %; IMMATURE GRANULOCYTES ABSOLUTE 0.02 10/3/uL (0.0-0.11); LYMPHOCYTES 15.4 %; LYMPHOCYTES ABSOLUTE 1.53 10/3/uL (0.67-4.30); MEAN CORPUS HGB CONC 33.9 g/dL (32.0-36.0); MEAN CORPUSCULAR HEMOGLOB 31.8 pg (26.0-34.0); MEAN CORPUSCULAR VOLUME 93.9 fL (80-100); MEAN PLATELET VOLUME 11.4 fL (9.2-13.0); MONOCYTES 9.3 %; MONOCYTES ABSOLUTE 0.92 10/3/uL (0.21-1.20); NEUTROPHILS 73.5 %; PLATELET COUNT 150 10/3/uL (150-400); RBC DISTRIBUTION WIDTH 13.1 % (12.0-16.0); RED CELL COUNT 3.14 10/6/uL (4.0-5.6); WHITE BLOOD CELLS 9.9 10/3/uL (4.5-10.5)
[2016-12-28 05:46] LABS: MANUAL DIFF NO %
[2016-12-28 05:59] LABS: CALCIUM, SERUM 8.4 MG/DL (8.5-10.4); CHLORIDE, SERUM 107 MMOL/L (96-112); CREATININE 0.67 MG/DL (0.55-1.02); GFR AFRICAN AMERICAN 102 ML/MIN (>=60); GFR NON AFRICAN AMERICAN 88 ML/MIN (>=60); GLUCOSE, SERUM 109 MG/DL (60-99); POTASSIUM, SERUM 3.5 MMOL/L (3.5-5.3); SODIUM, SERUM 145 MMOL/L (135-148)
[2016-12-28 06:00] LABS: BUN (BLOOD UREA NITROGEN) 24 MG/DL (6-23); CO2 (CARBON DIOXIDE) 31 MMOL/L (24-34)
[2016-12-29 07:38] LABS: CALCIUM, SERUM 8.2 MG/DL (8.5-10.4); CHLORIDE, SERUM 108 MMOL/L (96-112); CO2 (CARBON DIOXIDE) 27 MMOL/L (24-34); CREATININE 0.66 MG/DL (0.55-1.02); GFR AFRICAN AMERICAN 102 ML/MIN (>=60); GFR NON AFRICAN AMERICAN 88 ML/MIN (>=60); GLUCOSE, SERUM 101 MG/DL (60-99); SODIUM, SERUM 142 MMOL/L (135-148)
[2016-12-29 07:40] LABS: BUN (BLOOD UREA NITROGEN) 19 MG/DL (6-23); POTASSIUM, SERUM 4.5 MMOL/L (3.5-5.3)
[2016-12-30 05:22] LABS: BUN (BLOOD UREA NITROGEN) 17 MG/DL (6-23); CALCIUM, SERUM 8.3 MG/DL (8.5-10.4); CHLORIDE, SERUM 108 MMOL/L (96-112); CO2 (CARBON DIOXIDE) 26 MMOL/L (24-34); CREATININE 0.63 MG/DL (0.55-1.02); GFR AFRICAN AMERICAN 104 ML/MIN (>=60); GFR NON AFRICAN AMERICAN 90 ML/MIN (>=60); GLUCOSE, SERUM 111 MG/DL (60-99); POTASSIUM, SERUM 4.3 MMOL/L (3.5-5.3); SODIUM, SERUM 144 MMOL/L (135-148)
[2016-12-31 05:51] LABS: BASOPHILS 0.2 %; BASOPHILS ABSOLUTE 0.02 10/3/uL (0.0-0.16); EOSINOPHILS 3.8 %; EOSINOPHILS ABSOLUTE 0.38 10/3/uL (0.0-0.53); HEMATOCRIT 31.4 % (36.0-48.0); HEMOGLOBIN 10.7 g/dL (12.0-16.0); IMMATURE GRANULOCYTES 0.4 %; IMMATURE GRANULOCYTES ABSOLUTE 0.04 10/3/uL (0.0-0.11); LYMPHOCYTES 18.7 %; LYMPHOCYTES ABSOLUTE 1.86 10/3/uL (0.67-4.30); MEAN CORPUS HGB CONC 34.1 g/dL (32.0-36.0); MEAN CORPUSCULAR HEMOGLOB 31.9 pg (26.0-34.0); MEAN CORPUSCULAR VOLUME 93.7 fL (80-100); MEAN PLATELET VOLUME 10.7 fL (9.2-13.0); MONOCYTES 9.9 %; MONOCYTES ABSOLUTE 0.98 10/3/uL (0.21-1.20); NEUTROPHILS ABSOLUTE 6.65 10/3/uL (2.02-8.40); RBC DISTRIBUTION WIDTH 13.5 % (12.0-16.0); RED CELL COUNT 3.35 10/6/uL (4.0-5.6); WHITE BLOOD CELLS 9.9 10/3/uL (4.5-10.5)
[2016-12-31 05:52] LABS: INTERNATIONAL NORMAL RATI 1.5 UNITS (-); PROTIME (NOT ORD) 17.7 SEC (12.0-14.5)
[2016-12-31 05:53] LABS: MANUAL DIFF NO %; PLATELET COUNT 269 10/3/uL (150-400)
[2016-12-31 05:58] LABS: BUN (BLOOD UREA NITROGEN) 17 MG/DL (6-23); CALCIUM, SERUM 8.7 MG/DL (8.5-10.4); CHLORIDE, SERUM 105 MMOL/L (96-112); CO2 (CARBON DIOXIDE) 29 MMOL/L (24-34); CREATININE 0.69 MG/DL (0.55-1.02); GFR AFRICAN AMERICAN 101 ML/MIN (>=60); GFR NON AFRICAN AMERICAN 87 ML/MIN (>=60); GLUCOSE, SERUM 117 MG/DL (60-99); POTASSIUM, SERUM 4.1 MMOL/L (3.5-5.3); SODIUM, SERUM 141 MMOL/L (135-148)
[2016-12-31] MEDS ORDERED: COREG12 PO (11:09)
[2016-12-31] MEDS ORDERED: HALF81 PO (11:09)
[2016-12-31] MEDS ORDERED: SPIRO25 PO (11:11)
[2016-12-31] MEDS ORDERED: SENTAB PO (11:12)
[2016-12-31] MEDS ORDERED: JANTOVEN2.5 MG PO (11:19)
[2016-12-31] MEDS ORDERED: NORCO1 TA1 PO (11:20)
[2017-05-14] MEDS ORDERED: ULTRAM50 PO ×2 (17:46→17:47)
== END 2016-12-31 11:51 | disposition home or self-care (01) | DRG 233 ==
LOC: CORLMH 09:00 → SSU2 09:30 → SSU1 19:02 → 5NO 12-19 16:54 → SDC/OF 12-24 10:10 → CVICU 12-24 13:29 → 5NO 12-26 12:57
PROVIDERS: Internal Medicine Cardiovascular Disease; Internal Medicine Interventional Cardiology; Thoracic Surgery (Cardiothoracic Vascular Surgery)
PROC: 4A023N7 Measurement of Cardiac Sampling and Pressure, Left Heart, Percutaneous Approach (ICD-10-PCS; principal; 2016-12-18)
PROC: B2111ZZ Fluoroscopy of Multiple Coronary Arteries using Low Osmolar Contrast (ICD-10-PCS; 2016-12-18)
PROC: 021309W Bypass Coronary Artery, Four or More Arteries from Aorta with Autologous Venous Tissue, Open Approach (ICD-10-PCS; 2016-12-18)
PROC: B2151ZZ Fluoroscopy of Left Heart using Low Osmolar Contrast (ICD-10-PCS; 2016-12-18)
PROC: 02100Z9 Bypass Coronary Artery, One Artery from Left Internal Mammary, Open Approach (ICD-10-PCS; 2016-12-18)
PROC: 06BP0ZZ Excision of Right Saphenous Vein, Open Approach (ICD-10-PCS; 2016-12-24)
PROC: 5A1221Z Performance of Cardiac Output, Continuous (ICD-10-PCS; 2016-12-24)
PROC: 02QL0ZZ Repair Left Ventricle, Open Approach (ICD-10-PCS; 2016-12-24)
PROC: B246ZZ4 Ultrasonography of Right and Left Heart, Transesophageal (ICD-10-PCS; 2016-12-24)
DX: I21.4 Non-ST elevation (NSTEMI) myocardial infarction (principal); I50.23 Acute on chronic systolic (congestive) heart failure; I47.2 Ventricular tachycardia; I25.3 Aneurysm of heart; J98.11 Atelectasis; I25.10 Atherosclerotic heart disease of native coronary artery without angina pectoris; I25.2 Old myocardial infarction; E78.5 Hyperlipidemia, unspecified; Z87.442 Personal history of urinary calculi; Z88.2 Allergy status to sulfonamides; Z88.0 Allergy status to penicillin; Z79.82 Long term (current) use of aspirin; Z79.899 Other long term (current) drug therapy; I11.0 Hypertensive heart disease with heart failure; W01.0XXA Fall on same level from slipping, tripping and stumbling without subsequent striking against object, initial encounter; Y92.231 Patient bathroom in hospital as the place of occurrence of the external cause
CPT/HCPCS: 36415; 71010; 71020; 80048; 80053; 80061; 81001; 82330; 82803; 82805; 82947; 82962; 83036; 83735; 84132; 84295; 85014; 85018; 85025; 85049; 85347; 85610; 85730; 86850; 86900; 86901; 86920; 87045; 87046; 87046-59; 87086; 87493; 87493-59; 87641; 87899; 87899-59; 93005; 93312; 93320; 93325; 93458; 93880; 94002; 94640; 94660; 94770; 97161-GP; 99152; 99153; A9270-GY; C1713; C1751; C1769; C1894; C8923; G8978-CH-GP; G8979-CH-GP; G8980-CH-GP; J0690; J1644; J1940; J2150; J2250; J2370; J2405; J2440; J2720; J2795; J2930; J3010; J3475; J3480; P9045; P9047; Q9957; Q9967